=== PATIENT | female | born 1950 | race Asian ===

== ENCOUNTER → 2017-11-18 | Outpatient (CLI) | payer BC, OTHER | LOC: FIMAGING 14:55 | PROVIDERS: ATTEND Otolaryngology | DX: J40 Bronchitis, not specified as acute or chronic (principal); E04.2 Nontoxic multinodular goiter ==

== ENCOUNTER 2018-01-12 06:47 | Day surgery (SDC) | payer BC, OTHER ==
[2018-01-12] MEDS ORDERED: BACITRACIN ZINC 14.2 GM OINTTUBE TP ONE (07:10)
[2018-01-12] MEDS ORDERED: LIDO/EPI 1% **for epidural** 30 ML SDV ONE (07:10)
[2018-01-12] MEDS ORDERED: LIDOCAINE 1% 300 MG/30 ML SDV ONE (07:14)
[2018-01-12 07:39] VITALS: BP 158/88
--- NOTE | 2018-02-01 08:52 | PDHPUP ---
History & Physical Update H&P update statement: This history and physical update is based on an assessment of the patient which was completed after admission or registration (within 24 hours), but prior to the surgery/procedure. H&P update: changes noted (Pt has a new spreading skin rash. Due to this, we will reschedule for some time in the future.)
== END 2018-01-12 08:00 | disposition home or self-care (01) ==
LOC: FSGY 06:47 → UNDOADMOB 06:47 → F3E 06:47 → FSGY 08:00 → EDSTATUS 08:15
PROVIDERS: ATTEND Otolaryngology
DX: E04.1 Nontoxic single thyroid nodule (principal); R21 Rash and other nonspecific skin eruption; Z53.09 Procedure and treatment not carried out because of other contraindication
CPT/HCPCS: J0171

== ENCOUNTER 2018-02-16 06:17 | Observation (INO) | payer BC, OTHER ==
[2018-02-16] MEDS ORDERED: DEXAMETHASONE 4 MG/ML VIAL IVP ONE (06:41)
[2018-02-16] MEDS ORDERED: ceFAZolin 2 GM/SWFI 2 GM/20 ML SYR IVP ONE (06:41)
[2018-02-16] MEDS ORDERED: LR 1,000 ML IV ONE (06:42)
[2018-02-16] MEDS ORDERED: LIDOCAINE 1% 2 ML INJ ID PRN (06:42)
[2018-02-16] MEDS ORDERED: BACITRACIN ZINC 14.2 GM OINTTUBE TP ONE (06:49)
[2018-02-16] MEDS ORDERED: LIDOCAINE 1% 300 MG/30 ML SDV ONE (06:49)
[2018-02-16] MEDS ORDERED: LIDO/EPI 1% **for epidural** 30 ML SDV ONE (06:50)
--- NOTE | 2018-02-16 07:27 | PDGENHP ---
History & Physical Chief Complaint: Thyroid goiter with compression symptoms History of Present Illness: PT is a 67 y/o woman with a history of slowly enlarging thyroid goiter with dominant right nodule. She has some early compressive symptoms and presents for thyroidectomy. Relevant Physical Exam: enlarged thyroid 7cm superior to inferior dimension in maximal palpable portion. Lungs CTA. COR rrr Cardiorespiratory Assessment: LUngs CTA. COR RRR no murmur
[2018-02-16] MEDS ORDERED: ROCURONIUM 50 MG/5 ML VIAL ONE ×2 (07:43→07:51)
[2018-02-16] MEDS ORDERED: DEXAMETHASONE 4 MG/ML VIAL ONE (07:43)
[2018-02-16] MEDS ORDERED: LIDOCAINE 2% 5 ML SDV ONE (07:43)
--- NOTE | 2018-02-16 07:49 | PDANEPAE ---
ANE History of Present Illness enlarged thyroid ANE Past Medical History - Cardiovascular History Hx Hypertension: Yes Hx Arrhythmias: No Hx Chest Pain: No Hx Coronary Artery / Peripheral Vascular Disease: No Hx CHF / Valvular Disease: No Hx Palpitations: No - Pulmonary History Hx COPD: No Hx Asthma/Reactive Airway Disease: No Hx Recent Upper Respiratory Infection: No Hx Oxygen in Use at Home: No Hx Sleep Apnea: No Sleep Apnea Screening Result - Last Documented: Negative Pulmonary History Comment: NONE - Neurologic History Hx Cerebrovascular Accident: No Hx Seizures: No Hx Dementia: No - Endocrine History Hx Diabetes: No Endocrine History Comment: enlarged thyroid - Renal History Hx Renal Disorders: No - Liver History Hx Hepatic Disorders: No - Neurological & Psychiatric Hx Hx Neurological and Psychiatric Disorders: No - Cancer History Hx Cancer: No - Congenital Disorder History Hx Congenital Disorders: No - GI History Hx Gastrointestinal Disorders: No - Other Health History Other Health History: wears glasses - Chronic Pain History Chronic Pain: No - Surgical History Prior Surgeries: COLONOSCOPY ANE Review of Systems Review of Systems: - Exercise capacity METS (RN): 4 METS ANE Patient History - Allergies Allergies/Adverse Reactions: No Known Allergies Allergy (Verified 02/16/18 06:48) - Home Medications Home Medications: Calcium Carbonate [Oyster Shell Calcium 500 mg (*)] 500 mg PO DAILY 12/21/17 [ Last Taken 02/09/18] Cholecalciferol Vit D3 [Vitamin D3 (*)] 1,000 units PO DAILY 12/21/17 [Last Taken 02/09/18] RX: Methimazole 15 mg PO DAILY 12/21/17 [Last Taken 02/16/18 04:15] - NPO status NPO Since - Liquids (Date): 02/16/18 NPO Since - Liquids (Time): 04:15 NPO Since - Solids (Date): 02/15/18 NPO Since - Solids (Time): 23:00 - Smoking Hx Smoking Status: Never smoked - Family Anes Hx Family Hx Anesthesia Complications: NEG ANE Labs/Vital Signs - Vital Signs Blood Pressure: 165/97 Heart Rate: 71 Respiratory Rate: 16 O2 Sat (%): 96 Height: 160.02 cm Weight: 64.864 kg ANE Physical Exam - Airway Neck exam: decreased ROM Mallampati Score: Class 3 Mouth exam: normal dental/mouth exam - Pulmonary Pulmonary: no respiratory distress - Cardiovascular Cardiovascular: regular rate and rhythym - ASA Status ASA Status: III ANE Anesthesia Plan Anesthesia Plan: general endotracheal anesthesia
[2018-02-16] MEDS ORDERED: fentaNYL 100 MCG/2 ML INJ ONE ×4 (07:51→10:51)
[2018-02-16] MEDS ORDERED: PROPOFOL 200 MG/20 ML VIAL ONE ×2 (07:52)
[2018-02-16] MEDS ORDERED: epHEDrine SULFATE 10 MG/ML SYR ONE (08:18)
[2018-02-16] MEDS ORDERED: NALOXONE HCL 0.4 MG/ML INJ IVP PRN (08:48)
[2018-02-16] MEDS ORDERED: ONDANSETRON 4 MG/2 ML VIAL IVP PRN ×2 (08:48→10:42)
[2018-02-16] MEDS ORDERED: PROMETHAZINE HCL 25 MG/ML INJ IVP PRN (08:48)
[2018-02-16] MEDS ORDERED: LABETALOL HCL 5 MG/ML 20 ML MDV IVP PRN (08:48)
[2018-02-16] MEDS ORDERED: HYDROmorphONE/DILAUDID 2 MG/ML INJ IVP PRN (08:48)
[2018-02-16] MEDS ORDERED: THROMBIN (BOVINE) 20,000 UNIT SPRAY TP ONE (10:05)
[2018-02-16] MEDS ORDERED: ONDANSETRON 4 MG/2 ML VIAL ONE (10:17)
[2018-02-16] MEDS ORDERED: OXYCODONE/APAP 5/325 TAB PO PRN (10:42)
--- NOTE | 2018-02-16 10:42 | POSTOPPROG ---
Post Op Note Date of Operation: 02/16/18 Surgeon: Janusz Mcleod Area Representative: Randy Newsome Anesthesiologist: JAELYN Anesthesia: GET(General Endotracheal) Pre-op Diagnosis: Thyroid goiter with compression symptoms Post-op Diagnosis: Same Indication: enlarging goiter Procedure: Total thyroidectomy Findings: large goiter, dominant right nodule, both Rln ID Inf/Abcess present in the surg proc area at time of surgery?: No Depth: Organ Space EBL: 50-100 Complications: none Drains: Pete Ortega (10 FR flat drain)
--- NOTE | 2018-02-16 10:49 | POSTANESTH ---
Post Anesthetic Evaluation Cardiovascular Status: Normal, Stable Respiratory Status: Normal, Stable Level of Consciousness/Mental Status: Can Participate in Eval Pain Control: Adequate, Prn Tx Ordered Nausea/Vomiting Control: Adequate, Prn Tx Ordered Complications Possibly Related to Anesthesia: None Noted
[2018-02-16] MEDS: fentaNYL 100 MCG/2 ML INJ IVP PRN ×2 (10:55→11:17)
[2018-02-16] MEDS ORDERED: HYDROmorphONE/DILAUDID 2 MG/ML INJ ONE (11:33)
--- NOTE | 2018-02-16 12:09 | GOP ---
[f rep st] OPERATIVE REPORT DATE OF OPERATION: 02/16/2018 SURGEON: Janusz Mcleod MD HOSTAGE NEGOTIATOR: Grant Newsome. ANESTHESIA: General. PREOPERATIVE DIAGNOSIS: Enlarging thyroid goiter. POSTOPERATIVE DIAGNOSIS: Enlarging thyroid goiter. PROCEDURE PERFORMED: Total thyroidectomy. FINDINGS: Massive goiter with a dominant right nodule. The weight of the gland was 146 g. Both recurrent laryngeal nerves were identified. I also felt that I positively identified all 4 parathyroid glands as well. SPECIMENS: Thyroid gland. ESTIMATED BLOOD LOSS: 74 mL. INDICATIONS: The patient is a 67-year-old woman with a slowly enlarging thyroid goiter with worsening compressive symptoms. She presents for total thyroidectomy. DESCRIPTION OF PROCEDURE: Patient was taken to the OR and positively identified , placed on monitors and general anesthesia was induced. The patient was prepped and draped in a normal sterile fashion. Incision was marked along the anterior aspect of her neck. No skin crease was identifiable due to the large size of the goiter and tenting of the skin. I then infiltrated the subcutaneous tissues with 12 cc of 1% lidocaine with 1:200,000 epinephrine. The skin was then sharply incised. Dissection was carried down through the platysma. Superior and inferior subplatysmal flaps were then raised and secured. The strap muscles were elevated off the right side of the thyroid gland over the larger dominant nodule on the right side. I was able to identify the superior vascular pedicle. This was isolated, clamped, cut and ligated with 2-0 silk stick tie. We then dissected along the capsule inferiorly , tying off vessels and cauterized them as appropriate. Eventually, I was able to rotate the gland and deliver the right side of the gland from the neck to allow better identification of the parathyroid glands, which were elevated off the thyroid capsule. They appeared to have good vascularity within the fascial envelope and were left in situ. The recurrent laryngeal nerve was identified near where it entered the larynx. Julian's ligament was divided and the gland was elevated across the midline and off the trachea. The pyramidal lobe was then dissected off the thyroid cartilage and then the strap muscles on the left side were elevated off the left lobe of the thyroid gland. Again, in this case , the left side of the procedure was done the same fashion, isolating the superior vascular pedicle, which was cross clamped, ligated with 2-0 silk stick tie. Dissection was then swept inferiorly, tying off the middle thyroid vein and other feeding vessels as the lobe was rotated medially. The inferior vascular pedicle was divided. The parathyroid glands and recurrent laryngeal nerve were identified and the gland was removed and sent for pathologic evaluation. The wound was irrigated with sterile saline. Numerous small oozing vessels were cauterized with bipolar cautery. Two small arterials were clipped with small hemoclips. I then sprayed the wound bed with thrombin. A 10-Romansh drain was placed through a separate stab incision and secured with a drain stitch followed by a small Prolene just behind it due to a small oozing vessel in the skin. The wound was then closed with interrupted 3-0 Vicryl to reapproximate the strap muscles followed by 4-0 Monocryl through the platysma and subcutaneous tissues and 5-0 Prolene to the skin. A pressure dressing was placed and the case was terminated. The patient tolerated the procedure well. COMPLICATIONS: None. Copy requested to: Sunitha Meza MD /[id number]/MODL MTDAnnette
[2018-02-16] MEDS: D5W 1/2 NS W/ 20 KCl/L 1,000 ML IV SCH (12:56)
--- NOTE | 2018-02-16 18:01 | SOAPPROG ---
SOAP Progress Note Assessment/Plan: Assessment: Pt having some trouble with pain control, but not eating anything, so risk of nausea with narcotics. No SXS of low calcium, but due to the drop to 1.07 and the communication barrier , I will start her on calcium supplementation and plan to discahrgeerh 2 Tums tid for the next 2 weeks. Plan: Start calcium supplementation. Likely discharge in the AM. 02/16/18 17:58 Subjective: Pt has some pain Objective: Vital Signs Temp Pulse Resp BP Pulse Ox 36.6 C 86 14 134/78 H 95 02/16/18 16:12 02/16/18 16:12 02/16/18 16:12 02/16/18 16:12 02/16/18 16:12 02/15/18 02/16/18 02/17/18 05:59 05:59 05:59 Intake Total 810 Output Total 320 Balance 490 Neck flat. No hyperreactivity of facial muscles. ICD10 Worksheet Patient Problems: Problems Problem Status Onset Goiter Acute - ICD10 Problem Qualifiers (1) Goiter
[2018-02-16] MEDS ORDERED: CALCIUM GLUCONATE 50 ML IV ONE (18:02)
[2018-02-17] MEDS: D5W 1/2 NS W/ 20 KCl/L 1,000 ML IV SCH (03:00)
[2018-02-17 06:13] VITALS: BP 128/74
--- NOTE | 2018-02-17 08:28 | SOAPPROG ---
SOAP Progress Note Assessment/Plan: pt s/p total thyroid yesterday by Dr Mcleod. Doing well. No numbness or tingling. or cramping o- dressing removed, drain removed, incision c/d/i. New dressing placed Ionized Ca 1.07, 1.08, 1.06 Plan: pt s/p total thyroid. Post op instructions discussed with son over phone due to language barrier. 2 tums tid, Call if any numbness or tingling. or cramping. F/u next week for suture removal. 02/17/18 08:25 Objective: Vital Signs Temp Pulse Resp BP Pulse Ox 36.6 C 67 16 128/74 H 97 02/17/18 06:11 02/17/18 06:11 02/17/18 06:11 02/17/18 06:11 02/17/18 06:11 02/16/18 02/17/18 02/18/18 05:59 05:59 05:59 Intake Total 1060 1140 Output Total 1110 305 Balance -50 835 ICD10 Worksheet Patient Problems: Problems Problem Status Onset Goiter Acute
[2018-02-17] MEDS ORDERED: CALCIUM CARBONATE 500 MG CHEWABLE TAB PO ONE (09:45)
[2018-02-17] MEDS ORDERED: CALCITRIOL 0.25 MCG CAP PO ONE (09:45)
== END 2018-02-17 11:10 | disposition home or self-care (01) ==
LOC: F3N 06:17 → F3E 06:58
PROVIDERS: ADMIT Otolaryngology; ATTEND Otolaryngology
PROC: 0GTK0ZZ Resection of Thyroid Gland, Open Approach (ICD-10-PCS; principal; 2018-02-16 07:45)
DX: E04.9 Nontoxic goiter, unspecified (principal)
CPT/HCPCS: 60240; G0378; J0171; J0610; J0690; J1100; J1170; J2270; J2405; J2704; J3010

== ENCOUNTER → 2018-08-30 | Outpatient (CLI) | payer OTHER, BC | LOC: FIMAGING 13:09 | PROVIDERS: ATTEND Physician Assistant | DX: Z12.31 Encounter for screening mammogram for malignant neoplasm of breast (principal) ==